=== PATIENT | female | born 1975 | race Caucasian/White ===

== ENCOUNTER 2018-06-13 17:25 | Emergency (ER) | payer SELFPAY ==
[2018-06-13 18:21] VITALS: BP 107/47
--- NOTE | 2018-06-13 19:19 | UC ---
Skin Complaint HPI - HPI Summary HPI Summary: 42 year old female present with infected nose piercing. States she had the piercing done approximately 1 month ago and after about 2 weeks she started developing redness and swelling at the site. 1 week ago she noted that the skin started covering the outside of the stud. She has been able to push the stud through the skin but it keeps growing right back over. Has noted some bleeding from the site but denies purulent drainage. - History of Current Complaint Chief Complaint: UCSkin Time Seen by Provider: 06/13/18 19:11 Stated Complaint: SKIN COMPLAINT-NOSE Hx Obtained From: Patient Hx Last Menstrual Period: 05/20/18 Pain Intensity: 0 - Allergy/Home Medications Allergies/Adverse Reactions: Allergies Allergy/AdvReac Type Severity Reaction Status Date / Time No Known Allergies Allergy Verified 06/13/18 18:21 Home Medications: Home Medications Atorvastatin* [Lipitor*] 10 mg PO BEDTIME 06/13/18 [History Confirmed 06/13/18] Citalopram TAB* [CeleXA TAB*] 10 mg PO BEDTIME 06/13/18 [History Confirmed 06/13] Lisinopril TAB* [Prinivil TAB*] 10 mg PO BEDTIME 06/13/18 [History Confirmed ] Multivitamins/Minerals TAB* [Theragran/minerals TAB*] 1 tab PO DAILY 06/13/18 [ History Confirmed 06/13/18] Spironolactone TAB* [Aldactone TAB*] 100 mg PO BEDTIME 06/13/18 [History Confirmed 06/13/18] buPROPion TAB* [Wellbutrin TAB*] 75 mg PO ONCE 06/13/18 [History Confirmed 06/13] metFORMIN* [Glucophage 1000 MG TAB *] 500 mg PO BID 06/13/18 [History Confirmed 06/13/18] PMH/Surg Hx/FS Hx/Imm Hx Previously Healthy: Yes Endocrine History: Diabetes, Dyslipidemia Cardiovascular History: Hypertension Psychological History: Anxiety, Depression - Surgical History Surgical History: None - Family History Known Family History: Positive: Non-Contributory - Social History Occupation: Employed Full-time Lives: With Family Alcohol Use: None Alcohol Amount: none in 7 years Substance Use Type: None Smoking Status (MU): Never Smoked Tobacco Review of Systems All Other Systems Reviewed And Are Negative: Yes Constitutional: Negative: Fever, Chills Skin: Positive: Other - See HPI ENT: Positive: Negative Respiratory: Positive: Negative Cardiovascular: Positive: Negative Gastrointestinal: Positive: Negative Genitourinary: Positive: Negative Musculoskeletal: Positive: Negative Neurological: Positive: Negative Is Patient Immunocompromised?: No Physical Exam - Summary Physical Exam Summary: GENERAL APPEARANCE: Well developed, well nourished, alert and cooperative, and appears to be in no acute distress. NOSE: There is erythema, induration, and excoration at the site of the right nare piercing. The stud is only visible when pressure was applied to the end of the post from inside the nostril. Mild bleeding but no purulent discharge was noted. NECK: Neck supple, non-tender without lymphadenopathy. CARDIAC: Normal S1 and S2. No S3, S4 or murmurs. Rhythm is regular. There is no peripheral edema, cyanosis or pallor. Extremities are warm and well perfused. Capillary refill is less than 2 seconds. LUNGS: Clear to auscultation without rales, rhonchi, wheezing or diminished breath sounds. ABDOMEN: Positive bowel sounds. Soft, nondistended, nontender. No guarding or rebound. No masses or hepatosplenomegally. MUSKULOSKELETAL: ROM intact to all extremities. No joint erythema or tenderness. Normal muscular development. Normal gait. SKIN: Skin normal color, texture and turgor. Triage Information Reviewed: Yes Vital Signs: Initial Vital Signs Temp 97.1 F 06/13/18 18:15 Pulse 87 06/13/18 18:15 Resp 16 06/13/18 18:15 BP 107/47 06/13/18 18:15 Pulse Ox 100 06/13/18 18:15 Vital Signs Reviewed: Yes Course/Dx - Course Course Of Treatment: 42 year old female present with infected nose piercing. States she had the piercing done approximately 1 month ago and after about 2 weeks she started developing redness and swelling at the site. 1 week ago she noted that the skin started covering the outside of the stud. She has been able to push the stud through the skin but it keeps growing right back over. Has noted some bleeding from the site but denies purulent drainage. Afebrile. VSS. Exam revealed erythema, induration, and excoration at the site of the right nare piercing. The stud was only visable when pressure was applied to the end of the post from inside the nostril. Unable to release the piercing manually so post was cut using wire cutters and the piercing was removed in its entirity. The wound was cleansed thoroughly with soap and water and antibiotic ointment was applied both exteriorly as well as inside the nostril. I will place her on a short course of cephalexin 500 mg TID x 5 days. She is to return here or with her PCP in 3-5 days if symptoms do not improve. Anticipatory guidance as well as warning symptoms were discussed with the patient. Verbalizes understanding and agrees with POC. - Differential Diagnoses - Skin Complaint Differential Diagnoses: Cellulitis, Foreign Body, MRSA - Diagnoses Provider Diagnosis: Piercing, Skin infection Discharge - Sign-Out/Discharge Documenting (check all that apply): Patient Departure All imaging exams completed and their final reports reviewed: No Studies - Discharge Plan Condition: Stable Disposition: HOME Prescriptions: cephALEXin [Keflex] 500 mg PO TID #15 capsule Patient Education Materials: Wound Infection (ED) Referrals: No Primary Care Phys,NOPCP [Primary Care Provider] - Additional Instructions: Gently cleanse the outside of the nose with mild soap and water twice a day. Apply a small amount of bacitracin ointment to both the inside and outside of your nose. Take cephalexin 500 mg 3 times a day for 5 days. Return here or with your primary care provider in 3-5 days if symptoms do not improve. Seek immediate medical attention if you develop fever greater than 100.5 F, have pain that is not managed with over the counter pain medication, have redness that spreads, increased swelling of the nose, or any worsening of symptoms. - Billing Disposition and Condition Condition: STABLE Disposition: Home - Attestation Statements Provider Attestation: Per institutional requirements, I have reviewed the chart, however, I was not consulted specifically or made aware of this patient by the midlevel provider. I did not personally evaluate, interact with , or disposition this patient.
[2018-06-13] MEDS ORDERED: Cephalexin CAP* 500 MG PO ONE (19:42)
== END 2018-06-13 19:46 | disposition home or self-care (01) ==
LOC: UCCORT 17:25
DX: L08.9 Local infection of the skin and subcutaneous tissue, unspecified (principal); E11.9 Type 2 diabetes mellitus without complications; E78.5 Hyperlipidemia, unspecified; I10 Essential (primary) hypertension; F32.9 Major depressive disorder, single episode, unspecified; F41.9 Anxiety disorder, unspecified; Z79.899 Other long term (current) drug therapy; Z79.84 Long term (current) use of oral hypoglycemic drugs
CPT/HCPCS: 99202; A9270-GY; G0463